=== PATIENT | female | born 1950 | race Caucasian/White ===

== ENCOUNTER → 2022-05-16 11:06 | Outpatient (CLI) | payer MEDICARE, OTHER, SELFPAY ==
--- NOTE | 2022-05-16 11:44 | FL_ITS ---
FINAL REPORT CLINICAL HISTORY: . .38 fluoro time hernia FINDINGS: AIR CONTRAST UPPER GI HISTORY: Amaya's esophagus, known hiatal hernia. TECHNIQUE: Patient ingested thick and thin barium contrast. Effervescent crystals were also administered. Spot and overhead films were performed. 41 images were saved. FINDINGS: Long segment cervical fusion hardware is noted. There is a moderated sized sliding type hiatal hernia. There is esophageal dysmotility. The stomach is of normal size, shape and position. No gastric filling defects are seen. The duodenal bulb and sweep appear unremarkable. There is gastroesophageal reflux to the thoracic inlet. 13 mm barium tablet passes easily through the esophagus and into the stomach. There is no evidence of small bowel obstruction. Contrast is seen in the cecum. Fluoroscopy time: 1 minute, 38 seconds IMPRESSION: Moderate sliding type hiatal hernia with gastroesophageal reflux. Esophageal dysmotility. Reviewed, Interpreted and Dictated by Terrell Aranda MD Transcribed by Alexandrea Torres PA-C Authenticated and [facility]
== END ==
PROVIDERS: PCP Internal Medicine; Visit Provider Internal Medicine
DX: K44.9 Diaphragmatic hernia without obstruction or gangrene (principal); K21.9 Gastro-esophageal reflux disease without esophagitis; K22.70 Barrett's esophagus without dysplasia; I10 Essential (primary) hypertension
CPT/HCPCS: 74246

== ENCOUNTER 2023-09-12 13:19 | Outpatient (CLI) | payer MEDICARE, OTHER, SELFPAY ==
--- NOTE | 2023-09-12 13:20 | CA_ITS ---
FINAL REPORT TECHNIQUE: Real-time imaging was performed of the extracranial carotid arteries in transverse and longitudinal planes, with color duplex evaluation of blood flow velocity. Spectral analysis was performed. The cervical vertebral arteries were also examined. CLINICAL HISTORY: dizziness FINDINGS: NASCET technique is utilized for stenosis evaluation. Right carotid system (centimeters/second): CCA: 70 ICA: 86 Vertebral artery: Antegrade ICA/CCA ratio: 1.2 [id number] plaque is identified at the bifurcation. Left carotid system (centimeters/second): CCA: 93 ICA: 87 2 point Vertebral artery: Antegrade ICA/CCA ratio: 1.0 [id number] plaque is identified at the bifurcation. IMPRESSION: Less than 50% stenosis bilaterally. Reviewed, Interpreted and Dictated by Terrell Aranda MD Transcribed by Elvia Reynaga Authenticated and [facility]
== END 2023-09-12 23:59 | disposition home or self-care (01) ==
LOC: RT 13:20
PROVIDERS: PCP Internal Medicine; Visit Provider Internal Medicine
DX: R42 Dizziness and giddiness (principal)
CPT/HCPCS: 93880